=== PATIENT | female | born 1945 | race Caucasian/White ===

== ENCOUNTER 2023-04-05 19:40 | Emergency (ER) | payer SELFPAY ==
[~2023-04-05] VITALS: Ht 157.5 cm; Wt 73.0 kg
[2023-04-05 19:45] VITALS: BP 142/76; PULSE 88; RESP 18; TEMP 98.4; O2SAT 98
[2023-04-05] MEDS ORDERED: ACETAMINOPHEN 325MG TABLET PO ONE (21:30)
== END 2023-04-05 22:52 | disposition left against medical advice (07) ==
LOC: ER 19:40
DX: R51.9 Headache, unspecified (principal); Z53.21 Procedure and treatment not carried out due to patient leaving prior to being seen by health care provider
CPT/HCPCS: 99281; 99283